=== PATIENT | female | born 2000 | race Caucasian/White ===

== ENCOUNTER 2020-07-22 15:34 | Emergency (ER) | payer OTHER ==
[2020-07-22 16:42] LABS: BILIRUBIN NEGATIVE (NEGATIVE); BLOOD TRACE-INTACT Ery/uL (NEGATIVE); CLARITY CLOUDY (CLEAR); COLOR YELLOW (YELLOW); GLUCOSE (U) NORMAL (NORMAL); LEUKOCYTES NEGATIVE Leu/uL (NEGATIVE); NITRITE NEGATIVE (NEGATIVE); PROTEIN NEGATIVE (NEGATIVE)
[2020-07-22 16:51] LABS: AMORPHOUS URATES CRYSTALS LARGE; GRANULAR CASTS TRACE; URINARY RBC RARE
[2020-07-27 01:07] LABS: CHLAMYDIA TRACHOMATIS, NAA Positive (Negative); NEISSERIA GONORRHOEAE, NAA Negative (Negative)
== END 2020-07-22 18:07 | disposition home or self-care (01) ==
LOC: FER 15:34
PROVIDERS: Nurse Practitioner Family
DX: Z20.2 Contact with and (suspected) exposure to infections with a predominantly sexual mode of transmission (principal)
CPT/HCPCS: 81001; 87210; 87491; 87591; 99283; J0696

== ENCOUNTER 2021-07-15 20:46 | Emergency (ER) | payer OTHER ==
[2021-07-15 22:59] LABS: CORONAVIRUS 2019 SARS-COV-2 NEGATIVE (NEGATIVE); INFLUENZA A NAA NEGATIVE (NEGATIVE)
== END 2021-07-15 23:16 | disposition home or self-care (01) ==
LOC: FER 20:46
PROVIDERS: Nurse Practitioner Family
DX: O98.513 Other viral diseases complicating pregnancy, third trimester (principal); B34.9 Viral infection, unspecified; Z87.891 Personal history of nicotine dependence; Z20.822 Contact with and (suspected) exposure to COVID-19
CPT/HCPCS: 87880; 99283; U0002